=== PATIENT | male | born 1980 | race Two or more races ===

== ENCOUNTER 2025-03-18 05:45 | Emergency (ER) | payer MEDICAID, SELFPAY ==
[2025-03-18 05:46] VITALS: BMI 28.1
[2025-03-18 05:48] VITALS: BP 118/87; PULSE 82; RESP 19; TEMP 36.3; O2SAT 98
--- NOTE | 2025-03-18 05:48 | XR_ITS ---
Examination: CT abdomen and pelvis without contrast. Coronal 3-D reconstructions. Sagittal 2-D reconstructions. Date and time of exam:Mar 18 2025 at 0613 hours INDICATIONS: Onset abdominal pain today CTDI: vol (mGy): 6.75 DLP: (mGycm): 377 Technique: Axial images of the abdomen have been obtained, 3 mm slice thickness Intravenous contrast material has not been administered. Low dose protocols were performed. One or more of the following dose reduction techniques were used; automated exposure control, adjustment of the mA and/or KV according to patient size, use of iterative reconstruction technique. Findings: Left diaphragmatic defect containing colon at the splenic fracture, coronal image 39 No focal liver or splenic lesions Opacity in the stomach since No gallstones Multiple fluid distended small bowel loops in the anterior abdomen No pancreatic mass No renal or ureteral calculi Normal appendix Colonic diverticulosis, no diverticulitis Urinary bladder intact No prostatomegaly The osseous structures are intact IMPRESSION: Defect in the left diaphragm containing colon at the splenic fracture, the colon is in the left hemithorax, coronal image 46 Small bowel obstruction pattern, consider a Gastrografin small bowel series follow-up
--- NOTE | 2025-03-18 05:49 | PD.EDRME ---
Rapid Medical Screening Exam RME Arrival date/time: 03/18/25 05:45 This is a case of a 44-year-old male who came in in the emergency room due to abdominal pain today associated with nausea vomiting denies any constipation diarrhea any urinary symptoms denies any blood in stool Chief Complaint: Abdominal Pain Time Seen by Provider: 03/18/25 05:48
[2025-03-18 06:14] LABS: Basophils # (Auto) 0.1 Thou/mm3 (0.0-0.2); Basophils % (Auto) 1 % (0-2.5); Eosinophils # (Auto) 0.1 Thou/mm3 (0.0-0.5); Eosinophils % (Auto) 1 % (0-10); Hematocrit 47.5 % (41.0-53.0); Hemoglobin 16.6 g/dL (13.5-16.0); Immature Granulocytes % (Auto) 0 % (0-0); Immature Granulocytes Auto 0.02 Thou/mm3 (0.00-0.00); Lymphocytes # (Auto) 2.7 Thou/mm3 (1.0-4.8); Lymphocytes % (Auto) 27 % (10-50); Mean Corpuscular HGB Conc 34.9 g/dl (31.0-37.0); Mean Corpuscular Hemoglobin 31.1 pg (25.0-35.0); Mean Corpuscular Volume 89 fL (80-100); Monocytes # (Auto) 0.6 Thou/mm3 (0.0-0.8); Monocytes % (Auto) 6 % (0-12); Neutrophils # (Auto) 6.7 Thou/mm3 (1.8-7.7); Neutrophils % (Auto) 65 % (37-80); Nucleated Red Blood Cell % 0 /100 WBC (0); Platelet Count 290 Thou/mm3 (140-440); RDW Standard Deviation 43.1 fL (35.1-43.9); Red Blood Count 5.34 Miln/mm3 (4.50-5.90); White Blood Count 10.2 Thou/mm3 (3.8-10.6)
[2025-03-18 06:35] LABS: Alanine Aminotransferase 18 U/L (10-49); Albumin, Serum 5.2 gm/dL (3.5-5.0); Albumin/Globulin Ratio 1.9 (1.2-2.2); Alkaline Phosphatase 108 U/L (46-116); Anion Gap 9 (7-16); Aspartate Amino Transferase 20 U/L (0-34); BUN/Creatinine Ratio 18 Ratio (12-20); Bilirubin,Total 1.2 mg/dL (0.3-1.2); Blood Urea Nitrogen 18 mg/dL (9-23); Calcium 9.9 mg/dL (8.3-10.6); Calcium (Corrected) 9.9 mg/dL (8.5-10.1); Carbon Dioxide 27.4 mMol/L (20.0-31.0); Chloride 104 mMol/L (98-107); Estimated Creatinine Clearance 98.4 mL/min (>60); Globulin 2.7 gm/dL (2.3-3.5); Glucose 106 mg/dL (74-106); Lipase 35 U/L (12-53); Osmolality,Calculated 281 (275-295); Potassium 3.9 mMol/L (3.4-5.1); Sodium 140 mMol/L (136-145); Total Protein 7.9 gm/dL (5.7-8.2); eGFR > 60 See Note
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
--- NOTE | 2025-03-18 08:51 | PC.NURSE ---
PATIENT CALLED, MOTHER ANSWERED. INFORMED THAT MD NEEDS TO SPEAK WITH PATIENT REGARDING RESULTS AND HE MAY NEED FURTHER WORKUP. STATES THEY WILL BE BACK IN LIKE 10 MINUTES
== END 2025-03-18 08:05 | disposition left against medical advice (07) ==
LOC: SERX 07:26
PROVIDERS: Nurse Practitioner Family; Emergency Provider Emergency Medicine; PCP Family Medicine
DX: R10.9 Unspecified abdominal pain (principal); R11.2 Nausea with vomiting, unspecified; Z53.29 Procedure and treatment not carried out because of patient's decision for other reasons
CPT/HCPCS: 36415; 74176; 80053; 81001; 83690; 85025; 99281

== ENCOUNTER 2025-03-18 09:05 | Observation (INO) | payer MEDICAID, SELFPAY ==
[2025-03-18 09:21] VITALS: BP 129/83; PULSE 87; RESP 16; TEMP 37.1; O2SAT 99; BMI 28.1
--- NOTE | 2025-03-18 09:39 | EKG_ITS ---
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
[2025-03-18 10:27] LABS: Basophils # (Auto) 0.1 Thou/mm3 (0.0-0.2); Basophils % (Auto) 1 % (0-2.5); Eosinophils # (Auto) 0.1 Thou/mm3 (0.0-0.5); Eosinophils % (Auto) 1 % (0-10); Hemoglobin 16.7 g/dL (13.5-16.0); Immature Granulocytes % (Auto) 0 % (0-0); Immature Granulocytes Auto 0.04 Thou/mm3 (0.00-0.00); Lymphocytes # (Auto) 2.8 Thou/mm3 (1.0-4.8); Lymphocytes % (Auto) 27 % (10-50); Mean Corpuscular HGB Conc 34.8 g/dl (31.0-37.0); Mean Corpuscular Hemoglobin 31.2 pg (25.0-35.0); Mean Corpuscular Volume 90 fL (80-100); Monocytes # (Auto) 0.6 Thou/mm3 (0.0-0.8); Monocytes % (Auto) 6 % (0-12); Neutrophils # (Auto) 6.9 Thou/mm3 (1.8-7.7); Neutrophils % (Auto) 65 % (37-80); Nucleated Red Blood Cell % 0 /100 WBC (0); Platelet Count 296 Thou/mm3 (140-440); RDW Standard Deviation 43.7 fL (35.1-43.9); Red Blood Count 5.36 Miln/mm3 (4.50-5.90); White Blood Count 10.6 Thou/mm3 (3.8-10.6)
[2025-03-18 10:34] LABS: Partial Thromboplastin Time 27.1 Seconds (22.0-36.0); Prothrombin Time 11.4 Seconds (9.0-12.2)
[2025-03-18 10:36] LABS: Alanine Aminotransferase 21 U/L (10-49); Albumin, Serum 5.1 gm/dL (3.5-5.0); Alkaline Phosphatase 109 U/L (46-116); Anion Gap 10 (7-16); Aspartate Amino Transferase 20 U/L (0-34); BUN/Creatinine Ratio 20 Ratio (12-20); Bilirubin,Total 1.1 mg/dL (0.3-1.2); Blood Urea Nitrogen 20 mg/dL (9-23); Carbon Dioxide 28.3 mMol/L (20.0-31.0); Chloride 103 mMol/L (98-107); Estimated Creatinine Clearance 98.4 mL/min (>60); Globulin 2.6 gm/dL (2.3-3.5); Glucose 88 mg/dL (74-106); Lipase 32 U/L (12-53); Magnesium 2.4 mg/dL (1.6-2.6); Osmolality,Calculated 282 (275-295); Potassium 4.2 mMol/L (3.4-5.1); Sodium 141 mMol/L (136-145); Total Protein 7.7 gm/dL (5.7-8.2); eGFR > 60 See Note
[2025-03-18 10:45] VITALS: PULSE 68
[2025-03-18] MEDS: SODIUM CHLORIDE 0.9% 1000 ML 1,000 ML 999 ML IV (11:02)
[2025-03-18] MEDS: PANTOPRAZOLE INJ 40 MG VIAL IVP (11:02)
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
--- NOTE | 2025-03-18 11:33 | XR_ITS ---
Examination: Small bowel series with KUB as Examination type: March 18, 2025 1244 hours INDICATIONS: Abdominal pain and distention history, small bowel obstruction pattern on CT abdomen and pelvis today TECHNIQUE AND FINDINGS: [employer] film shows significant stool throughout the colon Patient received 120 cc Gastrografin with immediate, 15 minute, 45 minute and 1 hour 30 minutes films obtained Contrast is in the colon on the 1 hour 30 minute film IMPRESSION: Negative for small bowel obstruction No further films are needed
[2025-03-18 12:24] VITALS: BP 132/88; PULSE 78; RESP 16; TEMP 36.8; O2SAT 98
[2025-03-18] MEDS: SODIUM CHLORIDE 0.9% 1000 ML 1,000 ML 100 ML IV ×2 (12:41→16:26)
--- NOTE | 2025-03-18 12:46 | PC.NURSE ---
XRAY AT BEDSIDE DOEING ORDERED ABDOMINAL SERIES. PATIENT REFUSING NG/OG TUBE AT THIS TIME, REQUESTING TO WAIT OF SURGEON.
[2025-03-18 13:22] VITALS: BP 115/77; PULSE 59; RESP 15; TEMP 36.9; O2SAT 98
--- NOTE | 2025-03-18 13:41 | PC.NURSE ---
DR. MORALEZ AT BEDSIDE EVALUATING PATIENT AT THIS TIME. PATIENT DENIES COMPLAINT OF PAIN
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
[2025-03-18 16:10] VITALS: BMI 28.1
--- NOTE | 2025-03-18 19:39 | PC.NURSE ---
MD Fortune came and seen and examined the pt, per MD no need for surgery, no obstruction. MD Solano made aware per to advance the diet now and will observe until in the morning if he tolerates the diet.
[2025-03-18 20:00] VITALS: BP 98/65; PULSE 61; RESP 18; TEMP 36.4; O2SAT 96
[2025-03-19] VITALS: BP 105/67; PULSE 72; RESP 16; TEMP 36.6; O2SAT 95
[2025-03-19] MEDS: SODIUM CHLORIDE 0.9% 1000 ML 1,000 ML 100 ML IV (02:02)
[2025-03-19 04:00] VITALS: BP 105/63; PULSE 60; RESP 17; TEMP 36.2; O2SAT 96
[2025-03-19 04:25] LABS: Collection Type, Urine Clean Catch
[2025-03-19 04:33] LABS: Bilirubin,Urine Negative (Negative); Blood,Urine Negative (Negative); Clarity,Urine Clear (Clear/Hazy); Color,Urine Lt-Yellow (Lt Yel-Yel); Glucose, Urine Negative (Negative); Ketones,Urine Negative (Negative); Leukocyte Esterase,Urine Positive (Negative); Nitrite,Urine Negative (Negative); Protein,Urine Negative (Neg - Trace); RBC,Urine < 1 /hpf (0-3); Specific Gravity,Urine 1.014 (1.001-1.035); Squamous Epithelial Cell,Urine < 1 /hpf (0-5); Urobilinogen,Urine Negative mg/dL (0.0-1.0); WBC,Urine 3 /hpf (0-5)
[2025-03-19 06:15] LABS: Basophils % (Auto) 1 % (0-2.5); Eosinophils # (Auto) 0.2 Thou/mm3 (0.0-0.5); Eosinophils % (Auto) 3 % (0-10); Hematocrit 38.7 % (41.0-53.0); Immature Granulocytes % (Auto) 0 % (0-0); Immature Granulocytes Auto 0.02 Thou/mm3 (0.00-0.00); Lymphocytes # (Auto) 2.7 Thou/mm3 (1.0-4.8); Lymphocytes % (Auto) 45 % (10-50); Mean Corpuscular HGB Conc 33.6 g/dl (31.0-37.0); Mean Corpuscular Hemoglobin 31.4 pg (25.0-35.0); Mean Corpuscular Volume 94 fL (80-100); Monocytes # (Auto) 0.4 Thou/mm3 (0.0-0.8); Monocytes % (Auto) 7 % (0-12); Neutrophils # (Auto) 2.7 Thou/mm3 (1.8-7.7); Neutrophils % (Auto) 45 % (37-80); Nucleated Red Blood Cell % 0 /100 WBC (0); Platelet Count 179 Thou/mm3 (140-440); RDW Standard Deviation 45.1 fL (35.1-43.9); Red Blood Count 4.14 Miln/mm3 (4.50-5.90); White Blood Count 6.1 Thou/mm3 (3.8-10.6)
[2025-03-19 06:38] LABS: Alanine Aminotransferase 10 U/L (10-49); Albumin, Serum 3.4 gm/dL (3.5-5.0); Albumin/Globulin Ratio 1.8 (1.2-2.2); Alkaline Phosphatase 79 U/L (46-116); Anion Gap 6 (7-16); Aspartate Amino Transferase 13 U/L (0-34); BUN/Creatinine Ratio 14 Ratio (12-20); Bilirubin,Total 0.9 mg/dL (0.3-1.2); Blood Urea Nitrogen 11 mg/dL (9-23); Calcium 7.8 mg/dL (8.3-10.6); Calcium (Corrected) 8.3 mg/dL (8.5-10.1); Carbon Dioxide 24.4 mMol/L (20.0-31.0); Chloride 111 mMol/L (98-107); Creatinine (Component) 0.8 mg/dL (0.6-1.3); Globulin 1.9 gm/dL (2.3-3.5); Glucose 103 mg/dL (74-106); Magnesium 1.8 mg/dL (1.6-2.6); Osmolality,Calculated 280 (275-295); Phosphorous 3.3 mg/dL (2.4-5.1); Potassium 3.8 mMol/L (3.4-5.1); Sodium 141 mMol/L (136-145); Total Protein 5.3 gm/dL (5.7-8.2); eGFR > 60 See Note
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
[2025-03-19] MEDS: PANTOPRAZOLE 40 MG TABLET PO (08:04)
--- NOTE | 2025-03-19 13:03 | PC.SS ---
Pt discharged before SS had chance to complete initial; SS confirmed with medical team pt did not require any needs
== END 2025-03-19 09:10 | disposition home or self-care (01) ==
LOC: SERX 09:32 → SERHOLD 11:49 → S3SX 03-19 07:40 → SERHOLD 03-20 08:34
PROVIDERS: Admitting Provider Student in an Organized Health Care Education/Training Program; Emergency Provider Family Medicine; PCP Family Medicine; Visit Provider Student in an Organized Health Care Education/Training Program
DX: R10.9 Unspecified abdominal pain (principal); J45.909 Unspecified asthma, uncomplicated; K44.9 Diaphragmatic hernia without obstruction or gangrene; K66.0 Peritoneal adhesions (postprocedural) (postinfection); S31.109D Unspecified open wound of abdominal wall, unspecified quadrant without penetration into peritoneal cavity, subsequent encounter; Z01.810 Encounter for preprocedural cardiovascular examination
CPT/HCPCS: 36415; 74250; 80053; 81001; 83690; 83735; 84100; 85025; 85610; 85730; 93005; 96361; 96374; 99285; G0378; J2470; J7030; Q9963; A9270

== ENCOUNTER 2025-07-30 01:14 | Inpatient (IN) | payer MEDICAID, SELFPAY ==
[2025-07-30] VITALS (8 sets, daily range): BP systolic 106–132; BP diastolic 68–83; PULSE 57–84; RESP 16–95; TEMP 36.1–37.2; O2SAT 93–98
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
--- NOTE | 2025-07-30 02:18 | XR_ITS ---
Examination: Abdomen sonogram, Limited Date and time of exam: July 30, 2025, 0246 hrs. Indications: Onset abdominal pain today Technique: Real-time gibson scale transabdominal sonographic images of the upper abdomen obtained. Findings: Normal gallbladder. Normal common bile duct 0.4 cm Pancreatic head 3.3 cm Liver 15.1 cm fatty infiltration irregular contour no focal liver lesions Normal hepatopedal portal venous flow Patent IVC Impression: Normal gallbladder Primary hepatocellular disease
--- NOTE | 2025-07-30 02:18 | XR_ITS ---
Examination: CT chest with intravenous contrast CT abdomen with intravenous contrast CT pelvis with intravenous contrast 2-D coronal and sagittal reconstructions Time of exam: July 30, 2025, 0354 hrs. Indications: Onset chest and abdominal pain beginning 2 days ago. CTDI: vol (mGy) : 13.38 DLP: (mGycm): 712 Technique: Multiple axial images of the chest, abdomen and pelvis with intravenous contrast, 3.0 mm slice thickness. Images obtained post intravenous injection Isovue 370 60 cc. 2-D sagittal and coronal reconstructions. Low dose protocols were performed. One or more of the following dose reduction techniques were used; automated exposure control, adjustment of the mA and/or KV according to patient size, use of iterative reconstruction technique. Findings: No thoracic aortic aneurysmal dilatation Pulmonary artery segments are not enlarged, no filling defects on this non-CTA study No mediastinal lymphadenopathy No pneumonia or pulmonary edema Atelectasis in the lower lung zones Left diaphragmatic hernia defect containing colon No visualized liver or splenic lesion No gallstones Small bowel obstruction, multiple fluid distended small bowel loops, small bowel strictures noted Aorta normal size Normal appendix Colonic diverticulosis, no diverticulitis Urinary bladder intact Mild osteopenia Impression: Small bowel obstruction, consider Gastrografin small bowel series follow-up
[2025-07-30 02:43] LABS: Basophils # (Auto) 0.0 Thou/mm3 (0.0-0.2); Basophils % (Auto) 0 % (0-2.5); Eosinophils # (Auto) 0.0 Thou/mm3 (0.0-0.5); Eosinophils % (Auto) 0 % (0-10); Hematocrit 51.8 % (41.0-53.0); Hemoglobin 18.0 g/dL (13.5-16.0); Immature Granulocytes Auto 0.06 Thou/mm3 (0.00-0.00); Lymphocytes # (Auto) 2.1 Thou/mm3 (1.0-4.8); Lymphocytes % (Auto) 17 % (10-50); Mean Corpuscular HGB Conc 34.7 g/dl (31.0-37.0); Mean Corpuscular Hemoglobin 31.3 pg (25.0-35.0); Mean Corpuscular Volume 90 fL (80-100); Monocytes # (Auto) 0.6 Thou/mm3 (0.0-0.8); Monocytes % (Auto) 5 % (0-12); Neutrophils # (Auto) 9.9 Thou/mm3 (1.8-7.7); Neutrophils % (Auto) 78 % (37-80); Nucleated Red Blood Cell # 0.00 Thou/mm3 (0.00-0.00); Nucleated Red Blood Cell % 0 /100 WBC (0); Platelet Count 305 Thou/mm3 (140-440); RDW Standard Deviation 41.7 fL (35.1-43.9); Red Blood Count 5.76 Miln/mm3 (4.50-5.90); White Blood Count 12.8 Thou/mm3 (3.8-10.6)
[2025-07-30] MEDS: SODIUM CHLORIDE 0.9% 1000 ML 1,000 ML 999 ML IV ×2 (02:53→05:13)
[2025-07-30] MEDS: KETOROLAC INJ 30 MG/ML VIAL IVP (02:54)
[2025-07-30] MEDS: HYDROmorphone INJ 2 MG/ML VIAL IVP (02:54)
[2025-07-30] MEDS: ONDANSETRON INJ 2 MG/ML INJ 2 ML 4 MG IVP (02:54)
[2025-07-30 03:02] LABS: Alanine Aminotransferase 20 U/L (10-49); Albumin, Serum 5.4 gm/dL (3.5-5.0); Albumin/Globulin Ratio 1.8 (1.2-2.2); Alkaline Phosphatase 119 U/L (46-116); Amylase 119 U/L (30-118); Anion Gap 13 (7-16); Aspartate Amino Transferase 23 U/L (0-34); BUN/Creatinine Ratio 15 Ratio (12-20); Bilirubin,Direct 0.2 mg/dL (0.0-0.3); Bilirubin,Total 1.0 mg/dL (0.3-1.2); Blood Urea Nitrogen 18 mg/dL (9-23); Calcium 11.2 mg/dL (8.3-10.6); Calcium (Corrected) 11.2 mg/dL (8.5-10.1); Carbon Dioxide 24.8 mMol/L (20.0-31.0); Chloride 104 mMol/L (98-107); Creatinine (Component) 1.2 mg/dL (0.6-1.3); Globulin 3.0 gm/dL (2.3-3.5); Glucose 135 mg/dL (74-106); Magnesium 2.5 mg/dL (1.6-2.6); Osmolality,Calculated 287 (275-295); Potassium 4.4 mMol/L (3.4-5.1); Sodium 142 mMol/L (136-145); Total Protein 8.4 gm/dL (5.7-8.2); eGFR > 60 See Note
--- NOTE | 2025-07-30 03:41 | PRELIM_ITS ---
Gallbladder ultrasound. July 30, 2025 at 0246 hours Clinical history: Upper abdominal tenderness Comparison: No prior study is available for comparison. Findings: The liver measures 15.1 cm in length. It appears hyperechoic and heterogeneous with irregular contour, consistent with parenchymal disease. No focal hepatic lesion is demonstrated. The gallbladder is normal in appearance with a wall thickness of 0.3 cm. No gallstones, sludge, wall thickening, or pericholecystic fluids are identified. The common bile duct measures 0.4 cm in diameter, which is within normal limits. The pancreas is visualised and appears unremarkable. The main portal vein demonstrates hepatopetal flow. The inferior vena cava is patent. No free fluid is seen. Impression: 1. Hepatic parenchymal disease: heterogeneous echotexture, hyperechoic liver with irregular contour, suggestive of diffuse liver disease. 2. No focal hepatic lesion identified. 3. Gallbladder and biliary tree are unremarkable. Report Electronically Signed By: Rafal March 07/30/2025 3:40:32 AM [EST]
--- NOTE | 2025-07-30 05:05 | PRELIM_ITS ---
CT scan of the chest, abdomen and pelvis with intravenous contrast (axial sections with sagittal and coronal reformats) July 30, 2025 at 0354 hours Clinical History: Chest and abdominal pain. Comparison: No prior study is available for comparison. Findings: Bibasilar streaky atelectasis is present.There is no pleural effusion or pneumothorax.The aorta is unremarkable without evidence of dissection or aneurysm. No evidence of mediastinal mass or lymphadenopathy.There is no pericardial effusion.There are a few radiodense foreign body in the left chest wall.There is left diaphragmatic hernia containing fat and colon. Fatty infiltration of the liver is noted. The gallbladder, spleen, pancreas, adrenals and kidneys are unremarkable. Bowel anastomotic sutures are noted in the mid abdomen. There are markedly dilated small bowel loops with air fluid levels and transition at the level of the ileum at site of bowel anastomosis. There is small free fluid at transition. The appendix is within normal limits (coronal images 70-78). There are multiple colonic diverticula without evidence of diverticulitis. The urinary bladder is unremarkable. There is no free air. Mild Degenerative changes are identified in the spine. Impression: 1. Small bowel obstruction with transition at level of ileum at site of bowel anastomosis, likely due to adhesions. Recommend clinical correlation and follow- up. 2. Left diaphragmatic hernia as described. 3. Other findings as described above. Report Electronically Signed By: Rafal March 07/30/2025 5:05:15 AM [EST]
--- NOTE | 2025-07-30 05:38 | XR_ITS ---
Examination: AP chest single view Technique one AP portable upright chest single view Date and time: July 30, 2025, 0656 hrs., Comparison January 01, 2021 Indications: Post orogastric tube placement Findings: Orogastric tube tip in stomach satisfactory position Elevation left hemidiaphragm again noted with tiny opacities over the left upper abdomen left lateral abdomen Normal heart size No pneumonia or pulmonary edema Impression: Orogastric tube in the stomach satisfactory position
--- NOTE | 2025-07-30 06:15 | XR_ITS ---
Examination: Small bowel series AP abdomen supine 4 views Date and time: July 30, 2025, 0925 hrs. Indications: Small bowel obstruction pattern on CT abdomen study this morning, abdominal pain and distention Technique And Findings: Patient received 120 cc Gastrografin through the orogastric tube 10 minute, 30 minute, 1 hour into our films obtained Contrast in mildly distended small bowel loops However, contrast present in the colon on the 2 hour film Impression: Negative for small bowel obstruction, no further films are needed
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
[2025-07-30] MEDS: SODIUM CHLORIDE 0.9% 1000 ML 1,000 ML 75 ML IV ×2 (06:44→21:52)
[2025-07-30] MEDS: HEPARIN SOD INJ 5000 UNIT/ML VIAL SC ×2 (13:59→21:02)
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
[2025-07-30 20:33] LABS: Parathyroid Hormone Intact 116.0 pg/ml (18.5-88.0)
[2025-07-31] VITALS: BP 111/58; PULSE 74; RESP 17; TEMP 36.4; O2SAT 95
[2025-07-31 04:00] VITALS: BP 106/66; PULSE 69; RESP 17; TEMP 36.2; O2SAT 99
[2025-07-31] MEDS: HEPARIN SOD INJ 5000 UNIT/ML VIAL SC (05:36)
[2025-07-31 06:06] LABS: Basophils # (Auto) 0.0 Thou/mm3 (0.0-0.2); Basophils % (Auto) 0 % (0-2.5); Eosinophils # (Auto) 0.2 Thou/mm3 (0.0-0.5); Eosinophils % (Auto) 3 % (0-10); Hematocrit 39.4 % (41.0-53.0); Hemoglobin 13.3 g/dL (13.5-16.0); Immature Granulocytes Auto 0.02 Thou/mm3 (0.00-0.00); Lymphocytes # (Auto) 2.6 Thou/mm3 (1.0-4.8); Lymphocytes % (Auto) 45 % (10-50); Mean Corpuscular HGB Conc 33.8 g/dl (31.0-37.0); Mean Corpuscular Hemoglobin 31.6 pg (25.0-35.0); Mean Corpuscular Volume 94 fL (80-100); Monocytes # (Auto) 0.4 Thou/mm3 (0.0-0.8); Monocytes % (Auto) 7 % (0-12); Neutrophils # (Auto) 2.5 Thou/mm3 (1.8-7.7); Neutrophils % (Auto) 44 % (37-80); Nucleated Red Blood Cell # 0.00 Thou/mm3 (0.00-0.00); Nucleated Red Blood Cell % 0 /100 WBC (0); Platelet Count 210 Thou/mm3 (140-440); RDW Standard Deviation 44.1 fL (35.1-43.9); Red Blood Count 4.21 Miln/mm3 (4.50-5.90); White Blood Count 5.8 Thou/mm3 (3.8-10.6)
[2025-07-31 06:20] LABS: INR 1.0 (0.9-1.3); Partial Thromboplastin Time 27.5 Seconds (22.0-36.0); Prothrombin Time 10.7 Seconds (9.0-12.2)
[2025-07-31 06:36] LABS: Anion Gap 9 (7-16); BUN/Creatinine Ratio 16 Ratio (12-20); Blood Urea Nitrogen 11 mg/dL (9-23); Calcium 8.3 mg/dL (8.3-10.6); Carbon Dioxide 23.4 mMol/L (20.0-31.0); Chloride 108 mMol/L (98-107); Creatinine (Component) 0.7 mg/dL (0.6-1.3); Estimated Creatinine Clearance 131.6 mL/min (>60); Glucose 88 mg/dL (74-106); Osmolality,Calculated 277 (275-295); Potassium 3.9 mMol/L (3.4-5.1); Sodium 140 mMol/L (136-145); Thyroid Stimulating Hormone 1.59 uIU/mL (0.55-4.78); eGFR > 60 See Note
[2025-07-31 07:41] VITALS: BP 106/63; PULSE 67; RESP 19; TEMP 36.6; O2SAT 97
[2025-07-31 08:29] VITALS: PULSE 61; RESP 20; RESP 97
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
== END 2025-07-31 09:33 | disposition home or self-care (01) | DRG 247 ==
LOC: SERX 05:18 → SERHOLD 07:22 → S3NX 08:32
PROVIDERS: Admitting Provider Student in an Organized Health Care Education/Training Program; Emergency Provider Emergency Medicine; PCP Family Medicine; Visit Provider Student in an Organized Health Care Education/Training Program
DX: K56.609 Unspecified intestinal obstruction, unspecified as to partial versus complete obstruction (principal); E86.0 Dehydration; E83.52 Hypercalcemia; K57.30 Diverticulosis of large intestine without perforation or abscess without bleeding; D72.829 Elevated white blood cell count, unspecified; F17.200 Nicotine dependence, unspecified, uncomplicated
CPT/HCPCS: 36415; 71260; 74177; 74250; 76705; 80048; 80053; 82150; 82248; 83735; 83970; 84443; 85025; 85610; 85730; 96361; 96372; 96374; 96375; 99284; A4649; J1171; J1644; J1885; J2405; J7030; Q9967